=== PATIENT | male | born 1995 | race Caucasian/White ===

== ENCOUNTER 2016-07-22 18:31 | Emergency (ER) | payer OTHER ==
[2016-07-22 18:48] VITALS: BP 125/74
--- NOTE | 2016-07-22 19:06 | UC ---
Ear Complaint HPI - HPI Summary HPI Summary: The patient comes in today for: 1. Hearing is decreased. Onset: One day. Palliative/provocative: Swallowing helped today. Quality: No pain. Region: Both ears. Severity: 0/10 Time: Constant. Associated symptoms: Previous ear pain: Clogged feeling, and relief with irrigation. Previous treatment: He tried irrigating it with an OTC kit which did not help. Discharge: none. Hearing: muffled. Last irrigation: 6 months ago. * - History of Current Complaint Chief Complaint: UCEar Stated Complaint: EAR PRESSURE Time Seen by Provider: 07/22/16 18:53 Hx Obtained From: Patient - Allergies/Home Medications Allergies/Adverse Reactions: Allergies Allergy/AdvReac Type Severity Reaction Status Date / Time No Known Allergies Allergy Verified 07/22/16 18:47 PMH/Surg Hx/FS Hx/Imm Hx Previously Healthy: Yes Endocrine History Of: Denies: Diabetes, Thyroid Disease, Hyperthyroidism, Hypothyroidism, Dyslipidemia Cardiovascular History Of: Denies: Cardiac Disorders, Hypertension, Pacemaker/ICD, Myocardial Infarction , Congestive Heart Failure, Atrial Fibrillation, Deep Vein Thrombosis, Bleeding Disorders Respiratory History Of: Denies: COPD, Asthma, Bronchitis, Pneumonia, Pulmonary Embolism GI/ History Of: Denies: Gastroesophageal Reflux, Ulcer, Gastrointestinal Bleed, Gall Bladder Disease, Kidney Stones, Diverticulitis, Renal Disease, Urosepsis Neurological History Of: Denies: TIA, CVA, Dementia, Seizures, Migraine Psychological History Of: Denies: Anxiety, Depression, Bipolar Disorder, Schizophrenia, Post Traumatic Stress Disorder Cancer History Of: Denies: Lung Cancer, Colorectal Cancer, Breast Cancer, Prostate Cancer, Cervical Cancer Other History Of: Negative For: HIV, Hepatitis B - Surgical History Surgical History: Yes Surgery Procedure, Year, and Place: bleb removal d/t spon. pneumothorax X2. pleurodesis. chemical pleurodesis 2013, LEFT ACL REPLACEMENT - Family History Known Family History: Negative: Cardiac Disease, Hypertension - Social History Occupation: Employed Part-time, Student Alcohol Use: None Substance Use Type: None Smoking Status (MU): Never Smoked Tobacco Review of Systems Constitutional: Negative Skin: Negative Eyes: Negative ENT: Negative Respiratory: Negative Cardiovascular: Negative Gastrointestinal: Negative Genitourinary: Negative All Other Systems Reviewed And Are Negative: Yes Physical Exam Triage Information Reviewed: Yes Appearance: Well-Appearing, No Pain Distress, Well-Nourished Vital Signs: Initial Vital Signs Temp 98.5 F 07/22/16 18:45 Pulse 80 07/22/16 18:45 Resp 16 07/22/16 18:45 BP 125/74 07/22/16 18:45 Vital Signs Reviewed: Yes Eyes: Positive: Conjunctiva Clear. Negative: Discharge ENT: Positive: Other: - Ears (after both ears irrigated and cerumen removed). Right ear: TM smith, but the canal revealed some erythema, but no edema. Left ear: TM smith and translucent, but no canal erythema or edema.. Negative: Hearing grossly normal, Pharyngeal erythema, Nasal congestion, Nasal drainage, TM bulging, Tonsillar swelling, Tonsillar exudate Dental: Negative: Gross Decay/Caries @, Dental Fracture @ Neck: Positive: Supple, Nontender, No Lymphadenopathy. Negative: Nuchal Rigidity Respiratory: Positive: Chest non-tender, Lungs clear, No respiratory distress, No accessory muscle use. Negative: Crackles, Wheezing Cardiovascular: Positive: RRR, No Murmur Abdomen Description: Positive: Nontender, No Organomegaly Musculoskeletal: Positive: Strength Intact, ROM Intact Neurological: Positive: Alert, Muscle Tone Normal Psychological: Positive: Age Appropriate Behavior, Consolable Skin: Negative: rashes, breakdown Ear Complaint Course/Dx - Course Course Of Treatment: Both ears were irrigated. - Differential Dx/Diagnosis Differential Diagnosis/HQI/PQRI: Otitis Externa, Otitis Media Provider Diagnoses: Bilateral cerumen impaction, resolved. Discharge - Discharge Plan Condition: Stable Disposition: HOME Patient Education Materials: Cerumen Impaction (ED) Referrals: Juan Yu MD [Primary Care Provider] - 1 Week (Please see your primary care provider in a week to see how well you are doing. If you are doing well, you can forgo this re-evaluation. If you get worse, please be seen sooner in the ER or through us.)
== END 2016-07-22 19:36 | disposition home or self-care (01) ==
LOC: UCEAST 18:31
DX: H61.23 Impacted cerumen, bilateral (principal)
CPT/HCPCS: 99212; G0463

== ENCOUNTER 2017-01-07 15:23 | Emergency (ER) | payer OTHER ==
[2017-01-07 15:45] VITALS: BP 111/59
--- NOTE | 2017-01-07 16:18 | UC ---
Ear Complaint HPI - HPI Summary HPI Summary: L ear feeling clogged up since this morning. Has always made a lot of wax, not sure how to avoid this in the future. Denies URI sx or pain, has reduced hearing in L ear just today. - History of Current Complaint Chief Complaint: UCEar Stated Complaint: CLOGGED EAR Time Seen by Provider: 01/07/17 15:46 Hx Obtained From: Patient Onset/Duration: Sudden Onset Severity Initially: Mild Severity Currently: Mild Aggravating Factors: Nothing Alleviating Factors: Nothing Associated Signs/Symptoms: Positive: Hearing Loss, Foreign Body Sensation - Allergies/Home Medications Allergies/Adverse Reactions: Allergies Allergy/AdvReac Type Severity Reaction Status Date / Time No Known Allergies Allergy Verified 01/07/17 15:45 Home Medications: Home Medications NK [No Home Medications Reported] 01/07/17 [History Confirmed 01/07/17] PMH/Surg Hx/FS Hx/Imm Hx Previously Healthy: Yes Other History Of: Negative For: HIV, Hepatitis B - Surgical History Surgical History: Yes Surgery Procedure, Year, and Place: bleb removal d/t spon. pneumothorax X2. pleurodesis. chemical pleurodesis 2013, LEFT ACL REPLACEMENT - Family History Known Family History: Negative: Cardiac Disease, Hypertension - Social History Alcohol Use: Occasionally Substance Use Type: None Smoking Status (MU): Never Smoked Tobacco Review of Systems Constitutional: Negative Skin: Negative Eyes: Negative ENT: Ear Ache - L ear clogged Respiratory: Negative Cardiovascular: Negative Gastrointestinal: Negative Genitourinary: Negative Motor: Negative Neurovascular: Negative Musculoskeletal: Negative Neurological: Negative Psychological: Negative All Other Systems Reviewed And Are Negative: Yes Physical Exam Triage Information Reviewed: Yes Appearance: Well-Appearing, No Pain Distress, Well-Nourished Vital Signs: Initial Vital Signs Temp 98.1 F 01/07/17 15:42 Pulse 82 01/07/17 15:42 Resp 16 01/07/17 15:42 BP 111/59 01/07/17 15:42 Pulse Ox 99 01/07/17 15:42 Vital Signs Reviewed: Yes Eye Exam: Normal Eyes: Positive: Conjunctiva Clear ENT: Positive: Hearing grossly normal, TMs normal - post-flush, Other: - bilat cerumen impaction Dental Exam: Normal Neck exam: Normal Neck: Positive: Supple, Nontender, No Lymphadenopathy Respiratory Exam: Normal Respiratory: Positive: Chest non-tender, Lungs clear, Normal breath sounds, No respiratory distress, No accessory muscle use Cardiovascular Exam: Normal Cardiovascular: Positive: RRR, No Murmur Musculoskeletal Exam: Normal Neurological Exam: Normal Neurological: Positive: Alert Psychological Exam: Normal Skin Exam: Normal Ear Complaint Course/Dx - Differential Dx/Diagnosis Provider Diagnoses: bilat cerumen impaction Discharge - Discharge Plan Condition: Stable Disposition: HOME Patient Education Materials: Cerumen Impaction (ED) Referrals: Juan Yu MD [Primary Care Provider] -
== END 2017-01-07 16:25 | disposition home or self-care (01) ==
LOC: UCEAST 15:23
DX: H61.23 Impacted cerumen, bilateral (principal)
CPT/HCPCS: 69210; 99211; G0463

== ENCOUNTER 2018-08-07 12:54 | Emergency (ER) | payer OTHER ==
[2018-08-07 13:30] VITALS: BP 114/61
--- NOTE | 2018-08-07 13:42 | UC ---
Ear Complaint HPI - HPI Summary HPI Summary: 23 yo male presents with b/l ear muffled hearing. He tells me that he has a long history of cerumen impaction and has needed his ears flushed many times in the past. Recently he feels his ears are clogged up again. Denies fever, sinus symptoms, or ear pain. - History of Current Complaint Chief Complaint: UCEar Stated Complaint: EAR COMPLAINT Time Seen by Provider: 08/07/18 13:42 Hx Obtained From: Patient Onset/Duration: Gradual Onset Severity Currently: None Pain Intensity: 0 - Allergies/Home Medications Allergies/Adverse Reactions: Allergies Allergy/AdvReac Type Severity Reaction Status Date / Time No Known Allergies Allergy Verified 01/07/17 15:45 PMH/Surg Hx/FS Hx/Imm Hx - Additional Past Medical History Additional PMH: None Other History Of: Negative For: HIV, Hepatitis B - Surgical History Surgical History: Yes Surgery Procedure, Year, and Place: bleb removal d/t spon. pneumothorax X2. pleurodesis. chemical pleurodesis 2013, LEFT ACL REPLACEMENT - Family History Known Family History: Negative: Cardiac Disease, Hypertension - Social History Lives: With Family Alcohol Use: Occasionally Substance Use Type: None Smoking Status (MU): Never Smoked Tobacco Review of Systems All Other Systems Reviewed And Are Negative: Yes Constitutional: Positive: Negative Skin: Positive: Negative Eyes: Positive: Negative ENT: Positive: Ear Ache Respiratory: Positive: Negative Cardiovascular: Positive: Negative Neurological: Positive: Negative Psychological: Positive: Negative Physical Exam - Summary Physical Exam Summary: GENERAL: NAD. WDWN. No pain distress. SKIN: No rashes, sores, lesions, or open wounds. HEENT: Head: AT/NC Ears: Hearing grossly normal. B/L cerumen impaction. S/p irrigation : TMs intact and without erythema or bulging. No canal edema or drainage. NECK: Supple. Nontender. No lymphadenopathy. CHEST: No accessory muscle use. Breathing comfortably and in no distress. CV: Pulses intact. NEURO: Alert. PSYCH: Age appropriate behavior. Triage Information Reviewed: Yes Vital Signs: Initial Vital Signs Temp 98.4 F 08/07/18 13:25 Pulse 73 08/07/18 13:25 Resp 16 08/07/18 13:25 BP 114/61 08/07/18 13:25 Pulse Ox 99 08/07/18 13:25 Vital Signs Reviewed: Yes Ear Complaint Course/Dx - Course Course Of Treatment: B/L cerumen impaction with successful irrigation. Pt experienced complete resolution of his symptoms and felt much better. - Differential Dx/Diagnosis Provider Diagnosis: Cerumen impaction Discharge - Sign-Out/Discharge Documenting (check all that apply): Patient Departure All imaging exams completed and their final reports reviewed: No Studies - Discharge Plan Condition: Stable Disposition: HOME Patient Education Materials: Cerumen Impaction (ED) Referrals: Juan Yu MD [Primary Care Provider] - Additional Instructions: If you develop a fever, shortness of breath, chest pain, new or worsening symptoms - please call your PCP or go to the ED. Try [id number] DEBROX drops to keep ear wax soft and loose. - Billing Disposition and Condition Condition: STABLE Disposition: Home
== END 2018-08-07 14:12 | disposition home or self-care (01) ==
LOC: UCEAST 12:54
DX: H61.23 Impacted cerumen, bilateral (principal)
CPT/HCPCS: 99213; G0463